=== PATIENT | female | born 1945 ===

== ENCOUNTER 2019-01-18 11:10 | Day surgery (SDC) | payer MEDICARE, OTHER ==
[~2019-01-18 11:10] MED LIST: Acetaminophen TAB* 325 MG PO PRN; Buffered Lidocaine 1% SYRIN* 1 ML/SYRINGE INTRADERM ONE; Cyclopentolate 1% OPTH.SOL* 2 ML BTL ONE; Ketorolac 0.5% OPHTH (NF) 0.5 % 5 ML BTL ONE; Lidocaine 1%* 5 ML VIAL ONE; Lidocaine 2% EPI 1:200000 MPF*10-20 ML VIAL ONE; Neomycin/Polymy/Dex OPTH.SUSP* MAXITROL 0.1% 5 ML ONE; Phenylephrine OPHTH SOL 2.5%* 2 ML ONE; Povidone Iodine 5% OPTH* 30 ML BTL ONE; Proparacaine 0.5% OPHTH.SOL* 15 ML BTL ONE; acetaZOLAMIDE TAB* 250 MG ONE
[2019-01-18] MEDS ORDERED: Midazolam* 1 MG/ML 5 ML VIAL (5 MG) ONE (12:58)
--- NOTE | 2019-01-18 14:06 | OP ---
OPERATIVE NOTE: DATE OF OPERATION: 01/18/19 DATE OF : 43 SURGEON: Lenard Scott MD PREOPERATIVE DIAGNOSIS: Cataract and glaucoma right eye. POSTOPERATIVE DIAGNOSIS: Cataract and glaucoma right eye. OPERATIVE PROCEDURE: Extracapsular cataract extraction with intraocular lens implant and iStent righ t eye. PROCEDURE: The patient was brought to the operating room after being given 1/2% Alcaine with epineph rine drops in the preoperative area. The eye was prepped and draped in the usual sterile fashion. S terile drape and eyelid speculum were placed. Again, topical 1/2% Alcaine with epinephrine was given . A paracentesis incision was made at the 9 o'clock position with the No.75 blade. Clear cornea inc ision 2.2 x 2.2-mm was created at the 12 o'clock position starting at the anterior limbus using the 2 .2-mm keratome. The anterior chamber was irrigated with 0.4 mL of 1% non-preservative intracameral l idocaine and filled with DisCoVisc. A capsulorrhexis was completed using the cystotome and the Utrat a forceps. Hydrodissection was performed with balanced salt solution. The lens nucleus was removed w ith the Phacoemulsification handpiece without incident. Cortex was removed with the irrigation-aspir ation handpiece. The capsular bag was re-inflated using DisCoVisc and an [id number] implant was inser dionne with the shooter followed by an iStent inject placed at the 1 o'clock and 4 o'clock position. Th e irrigation- aspiration handpiece was used to remove all residual DisCoVisc. The eye was refilled w ith balanced salt solution and the wound checked and found to be watertight. Topical Maxitrol drops were given. [id number]/[facility] #: [id number]
[2019-01-18 14:24] VITALS: BP 142/79
== END 2019-01-18 14:10 | disposition home or self-care (01) ==
LOC: OREAST 11:10
PROVIDERS: ATTEND Specialist
DX: H25.811 Combined forms of age-related cataract, right eye (principal); H40.1131 Primary open-angle glaucoma, bilateral, mild stage; H43.813 Vitreous degeneration, bilateral; E78.00 Pure hypercholesterolemia, unspecified; Z87.891 Personal history of nicotine dependence; E78.5 Hyperlipidemia, unspecified; I10 Essential (primary) hypertension; Z85.820 Personal history of malignant melanoma of skin
CPT/HCPCS: A9270-GY; C1783; J2250; V2632

== ENCOUNTER 2019-01-25 06:43 | Day surgery (SDC) | payer MEDICARE, OTHER ==
[~2019-01-25 06:43] MED LIST changes: -Cyclopentolate 1% OPTH.SOL* 2 ML BTL ONE; -Ketorolac 0.5% OPHTH (NF) 0.5 % 5 ML BTL ONE; -Lidocaine 1%* 5 ML VIAL ONE; -Lidocaine 2% EPI 1:200000 MPF*10-20 ML VIAL ONE; -Neomycin/Polymy/Dex OPTH.SUSP* MAXITROL 0.1% 5 ML ONE; -Phenylephrine OPHTH SOL 2.5%* 2 ML ONE; -Povidone Iodine 5% OPTH* 30 ML BTL ONE; -Proparacaine 0.5% OPHTH.SOL* 15 ML BTL ONE; -acetaZOLAMIDE TAB* 250 MG ONE
[2019-01-25] MEDS ORDERED: acetaZOLAMIDE TAB* 250 MG ONE (07:44)
[2019-01-25] MEDS ORDERED: Phenylephrine OPHTH SOL 2.5%* 2 ML ONE (07:45)
[2019-01-25] MEDS ORDERED: Lidocaine 2% EPI 1:200000 MPF*10-20 ML VIAL ONE (07:45)
[2019-01-25] MEDS ORDERED: Cyclopentolate 1% OPTH.SOL* 2 ML BTL ONE (07:45)
[2019-01-25] MEDS ORDERED: Neomycin/Polymy/Dex OPTH.SUSP* MAXITROL 0.1% 5 ML ONE (07:45)
[2019-01-25] MEDS ORDERED: Ketorolac 0.5% OPHTH (NF) 0.5 % 5 ML BTL ONE (07:45)
[2019-01-25] MEDS ORDERED: Lidocaine 1%** 5 ML VIAL ONE (07:45)
[2019-01-25] MEDS ORDERED: Proparacaine 0.5% OPHTH.SOL* 15 ML BTL ONE (07:45)
[2019-01-25] MEDS ORDERED: Povidone Iodine 5% OPTH* 30 ML BTL ONE (07:45)
[2019-01-25] MEDS ORDERED: Midazolam* 1 MG/ML 2 ML VIAL (2 MG) ONE ×2 (08:20→08:42)
[2019-01-25 09:10] VITALS: BP 158/71
--- NOTE | 2019-01-25 09:11 | OP ---
OPERATIVE NOTE: DATE OF OPERATION: 01/25/19 - [facility] DATE OF : 43 SURGEON: Lenard Scott MD. PREOPERATIVE DIAGNOSIS: Cataract and glaucoma, left eye. POSTOPERATIVE DIAGNOSIS: Cataract and glaucoma, left eye. OPERATIVE PROCEDURE: Extracapsular cataract extraction with intraocular lens implant and iStent, left eye. PROCEDURE: The patient was brought to the operating room after being given 1/2 % Alcaine with epinephrine drops in the preoperative area. The eye was prepped and draped in the usual sterile fashion. Sterile drape and eyelid speculum were placed. Again, topical 1/2% Alcaine with epinephrine was given. A paracentesis incision was made at the 3 o'clock position with the No.75 blade. Clear cornea incision 2.2 x 2.2-mm was created at the 6 o'clock position starting at the anterior limbus using the 2.2-mm keratome. The anterior chamber was irrigated with 0.4 mL of 1% non-preservative intracameral lidocaine and filled with DisCoVisc. A capsulorrhexis was completed using the cystotome and the Utrata forceps. Hydrodissection was performed with balanced salt solution. The lens nucleus was removed with the Phacoemulsification handpiece without incident. Cortex was removed with the irrigation-aspiration handpiece. The capsular bag was re-inflated using DisCoVisc and an [id number] implant was inserted with the shooter and followed by iStent inject placed at the 7 o'clock and 11 o'clock position without difficulty. The irrigation-aspiration handpiece was used to remove all residual DisCoVisc. The eye was refilled with balanced salt solution and the wound checked and found to be watertight. Topical Maxitrol drops were given. [id number]/[facility] #: [id number] [facility]
== END 2019-01-25 09:06 | disposition home or self-care (01) ==
LOC: OREAST 06:43
PROVIDERS: ATTEND Specialist
DX: Z01.818 Encounter for other preprocedural examination (principal); H25.812 Combined forms of age-related cataract, left eye; H40.1131 Primary open-angle glaucoma, bilateral, mild stage; H43.813 Vitreous degeneration, bilateral; Z79.82 Long term (current) use of aspirin; E78.00 Pure hypercholesterolemia, unspecified; Z96.1 Presence of intraocular lens; Z87.891 Personal history of nicotine dependence
CPT/HCPCS: A9270-GY; C1783; J2250; V2632